=== PATIENT | female | born 1960 ===

== ENCOUNTER 2018-05-11 12:36 | Emergency (ER) | payer BC ==
[2018-05-11 12:52] VITALS: O2SAT 100
--- NOTE | 2018-05-11 13:36 | ED PDOC ---
HPI: Headache Time Seen by Provider: 05/11/18 13:01 Chief Complaint (Nursing): Headache Chief Complaint (Provider): Headache History Per: Patient History/Exam Limitations: no limitations Onset/Duration Of Symptoms: Days Current Symptoms Are (Timing): Still Present Quality: Pressure Associated Symptoms: denies: Photophobia, Blurred Vision Additional Complaint(s): Kerry Higginbotham is a 58 year old female with a past medical history of hypertension and hypothyroidism who is presenting to the ED for evaluation of pressure to the back of the head and left sided facial discomfort onset 1 month ago. Patient also complains of heart racing and palpitations onset 1 week ago, probably triggered by her husbands this past week. Her late had a stroke and she thinks she has to get checked out or she will have one. Patient denies any blurred vision, trouble walking, or trouble speaking. Of note, patient takes Atenolol and Thyroxine. PMD: Geoff Raya Past Medical History Reviewed: Historical Data, Nursing Documentation, Vital Signs Vital Signs: Last Vital Signs Temp 98.6 F 05/11/18 12:51 Pulse 91 H 05/11/18 12:51 Resp 19 05/11/18 12:51 BP 119/77 05/11/18 12:51 Pulse Ox 100 05/11/18 12:51 - Medical History PMH: HTN, Hyperthyroidism, Migraine Denies: Chronic Kidney Disease - Surgical History Other surgeries: cosmetic surgery - Family History Family History: States: Unknown Family Hx - Social History Current smoker - smoking cessation education provided: No Alcohol: None Drugs: Denies - Allergies Allergies/Adverse Reactions: Allergies Allergy/AdvReac Type Severity Reaction Status Date / Time No Known Allergies Allergy Verified 05/11/18 13:19 Review of Systems ROS Statement: Except As Marked, All Systems Reviewed And Found Negative Eyes: Negative for: Vision Change Cardiovascular: Positive for: Palpitations, Other (heart racing ) Neurological: Positive for: Headache (pressure ). Negative for: Change in Speech Physical Exam - Reviewed Nursing Documentation Reviewed: Yes Vital Signs Reviewed: Yes - Physical Exam Appears: Positive for: Non-toxic, No Acute Distress (intermittently tearful) Head Exam: Positive for: ATRAUMATIC Skin: Positive for: Normal Color, Warm, DRY Eye Exam: Positive for: EOMI, Normal appearance, PERRL ENT: Positive for: Normal ENT Inspection Neck: Positive for: Normal, Painless ROM Cardiovascular/Chest: Positive for: Tachycardia Respiratory: Positive for: Normal Breath Sounds. Negative for: Respiratory Distress Gastrointestinal/Abdominal: Positive for: Normal Exam, Soft. Negative for: Tenderness Back: Positive for: Normal Inspection. Negative for: L CVA Tenderness, R CVA Tenderness, Vertebral Tenderness Extremity: Positive for: Normal ROM. Negative for: Deformity, Swelling Neurologic/Psych: Positive for: Alert, dedicated intermodal truck driver II-XII (normal), Oriented, Gait (steady). Negative for: Motor/Sensory Deficits, Facial Droop - Laboratory Results Result Diagrams: 05/11/18 13:23 05/11/18 13:23 - ECG O2 Sat by Pulse Oximetry: 100 (RA) Pulse Ox Interpretation: Normal Medical Decision Making Medical Decision Making: Time: 13:23 Plan: --CT Head --EKG --BMP --TSH --CBC Patient denies depression and states that she doesn't want to talk to crisis. Scribe Attestation: Documented by, Gwendolyn Cast acting as a scribe for Odette Neri MD. Provider Scribe Attestation: All medical record entries made by the Scribe were at my direction and personally dictated by me. I have reviewed the chart and agree that the record accurately reflects my personal performance of the history, physical exam, medical decision making, and the department course for this patient. I have also personally directed, reviewed, and agree with the discharge instructions and disposition. Disposition - Clinical Impression Clinical Impression: Stress, Tension headache, Palpitations - Patient ED Disposition Is Patient to be Admitted: No Doctor Will See Patient In The: Office Counseled Patient/Family Regarding: Diagnosis, Need For Followup - Disposition Disposition: Routine/Home Disposition Time: 14:15 Condition: STABLE Instructions: Tension Headache Forms: [employer] (Sinhala) Print Language: DANISH - POA Present On Arrival: None
[2018-05-11 13:37] LABS: BASO # 0.1 K/uL (0.0-0.2); BASO % 0.9 % (0.0-2.0); EOS % 0.4 % (0.0-4.0); HEMOGLOBIN 14.6 g/dL (12.0-16.0); LYMPH % 29.7 % (20.0-40.0); MEAN CELL VOLUME 91.7 fl (81.0-99.0); MEAN CORPUSCULAR HEMOGLOBIN 30.8 pg (27.0-31.0); MEAN CORPUSCULAR HGB CONC 33.6 g/dL (33.0-37.0); MEAN PLATELET VOLUME 10.5 fl (7.2-11.7); MONO # 0.3 K/uL (0.0-0.8); MONO % 3.3 % (0.0-10.0); NEUT # 6.6 K/uL (1.8-7.0); NEUT % 65.7 % (50.0-75.0); NRBC % 0.1 % (0.0-0.0); RBC 4.75 Mil/uL (3.80-5.20); RED CELL DISTRIBUTION WIDTH 12.6 % (11.5-14.5); WHITE BLOOD COUNT 10.1 K/uL (4.8-10.8)
[2018-05-11 13:44] LABS: BLOOD UREA NITROGEN 22 mg/dl (7-17); CALCIUM 9.5 mg/dL (8.4-10.2); GFR NON-AFRICAN AMERICAN > 60
--- NOTE | 2018-05-11 14:20 | CT ---
Date of service: 05/11/2018 PROCEDURE: CT HEAD WITHOUT CONTRAST. HISTORY: pressure in the back of the head COMPARISON: None available. TECHNIQUE: Axial computed tomography images were obtained through the head/brain without intravenous contrast. Radiation dose: Total exam DLP = 694.14 mGy-cm. This CT exam was performed using one or more of the following dose reduction techniques: Automated exposure control, adjustment of the mA and/or kV according to patient size, and/or use of iterative reconstruction technique. FINDINGS: HEMORRHAGE: No intracranial hemorrhage. BRAIN: Resendiz-white matter differentiation is preserved. There is no mass, mass effect or abnormal extra-axial fluid collection. There is no territorial infarction. The midline sagittal structures are normal. VENTRICLES: The ventricles are normal in size, shape and configuration. CALVARIUM: There is no calvarial fracture or extracranial soft tissue swelling. PARANASAL SINUSES: Predominantly clear. MASTOID AIR CELLS: Predominantly clear. OTHER FINDINGS: None. IMPRESSION: No acute intracranial abnormality.
[2018-05-11 14:35] VITALS: BP 142/76; PULSE 69; RESP 18; TEMP 99.1
--- NOTE | 2018-05-11 18:39 | CARD ---
APPROVED REPORT Date of service: 05/11/2018 EKG Measurement Heart [id number] <Conclusion> Normal sinus rhythm Left axis deviation Low voltage QRS Inferior infarct, age undetermined Abnormal ECG
== END 2018-05-11 14:34 | disposition home or self-care (01) ==
LOC: H.ER 12:36
DX: G44.209 Tension-type headache, unspecified, not intractable (principal); R00.2 Palpitations; Z73.3 Stress, not elsewhere classified; E05.90 Thyrotoxicosis, unspecified without thyrotoxic crisis or storm; I10 Essential (primary) hypertension